=== PATIENT | female | born 1970 | race Caucasian/White ===

== ENCOUNTER 2020-05-20 13:34 | Emergency (ER) | payer BC ==
[~2020-05-20] VITALS: Ht 162.6 cm; Wt 63.6 kg
[2020-05-20 13:38] VITALS: BP 151/74
[2020-05-20] MEDS ORDERED: AMLO-257 PO (13:51)
[2020-05-20] MEDS ORDERED: LOSA50TA37 PO (13:51)
[2020-05-20] MEDS ORDERED: ESCI20TA87 PO (13:51)
== END 2020-05-20 14:20 | disposition left against medical advice (07) ==
LOC: EMS 13:34
DX: R20.0 Anesthesia of skin (principal); Z53.21 Procedure and treatment not carried out due to patient leaving prior to being seen by health care provider